=== PATIENT | female | born 1965 | race Caucasian/White ===

== ENCOUNTER 2021-10-21 13:15 | Outpatient (CLI) | payer OTHER | END 2021-10-21 13:16 | disposition home or self-care (01) | LOC: BICMAMMO 13:15 | PROVIDERS: ATTEND Nurse Practitioner Family | DX: Z12.31 Encounter for screening mammogram for malignant neoplasm of breast (principal); Z98.890 Other specified postprocedural states; Z91.89 Other specified personal risk factors, not elsewhere classified | CPT/HCPCS: 77063; 77067 ==

== ENCOUNTER 2022-11-10 14:13 | Outpatient (CLI) | payer BC | END 2022-11-10 14:14 | disposition home or self-care (01) | LOC: BICMAMMO 14:13 | PROVIDERS: ATTEND Family Medicine | DX: Z12.31 Encounter for screening mammogram for malignant neoplasm of breast (principal); Z91.89 Other specified personal risk factors, not elsewhere classified; Z98.82 Breast implant status | CPT/HCPCS: 77063; 77067 ==

== ENCOUNTER 2023-12-03 11:27 | Outpatient (CLI) | payer BC | END 2023-12-03 11:28 | disposition home or self-care (01) | LOC: BICMAMMO 11:27 | PROVIDERS: ATTEND Family Medicine | DX: Z12.31 Encounter for screening mammogram for malignant neoplasm of breast (principal); Z91.89 Other specified personal risk factors, not elsewhere classified; Z98.890 Other specified postprocedural states | CPT/HCPCS: 77063; 77067 ==

== ENCOUNTER 2025-06-27 14:53 | Outpatient (CLI) | payer BC | END 2025-06-27 14:54 | disposition home or self-care (01) | LOC: ULT 14:53 | PROVIDERS: ATTEND Internal Medicine | DX: C7A.8 Other malignant neuroendocrine tumors (principal); N85.8 Other specified noninflammatory disorders of uterus | CPT/HCPCS: 76856 ==